=== PATIENT | male | born 1955 | race Two or more races ===

== ENCOUNTER 2020-07-15 06:25 | Day surgery (SDC) | payer OTHER | END 2020-07-15 10:50 | disposition home or self-care (01) | LOC: AMB-ENDOS 06:25 → CIR.AMB 10:15 → AMB-ENDOS 10:50 | PROVIDERS: ATTEND Colon & Rectal Surgery | DX: D12.4 Benign neoplasm of descending colon (principal); K62.1 Rectal polyp; K64.8 Other hemorrhoids; Z20.822 Contact with and (suspected) exposure to COVID-19; K62.82 Dysplasia of anus ==

== ENCOUNTER 2020-07-24 12:15 | Inpatient (IN) | payer OTHER ==
[~2020-07-24] VITALS: Ht 167.6 cm; Wt 90.7 kg
[2020-07-24] MEDS ORDERED: GLIPIZIDE XL10 MG PO (14:59)
[2020-07-24] MEDS ORDERED: SIMVAST PO (14:59)
[2020-07-27] MEDS ORDERED: HORIZANT300 MG PO (16:28)
[2020-07-27] MEDS ORDERED: JANUMET 50-1,01 EACH PO (16:28)
[2020-07-27] MEDS ORDERED: SIMVASTATIN5 MG PO (16:29)
[2020-07-27] MEDS ORDERED: VITAMIN B-121000 MC2 SL (16:30)
[2020-07-27] MEDS ORDERED: INTEGRA PLUS C1 EACH PO (16:30)
[2020-07-31] MEDS ORDERED: LATANOPROST2.5 ML (13:11)
[2020-07-31] MEDS ORDERED: BRIMONIDINE TART5 M1 (13:11)
[2020-07-31] MEDS ORDERED: DORZOLAMIDE-TIM10 ML (13:12)
[2020-07-31] MEDS ORDERED: ATORVASTATIN CA10 MG (13:12)
[2020-07-31] MEDS ORDERED: PENTOXIFYLLINE400 MG (13:12)
== END 2020-08-03 12:08 | disposition home or self-care (01) | DRG 330 ==
LOC: O/R 07-31 07:57 → SURH 07-31 07:57 → O/R 07-31 12:15 → SURH 07-31 19:03
PROVIDERS: ADMIT Colon & Rectal Surgery; ATTEND Colon & Rectal Surgery
PROC: 07BB4ZX Excision of Mesenteric Lymphatic, Percutaneous Endoscopic Approach, Diagnostic (ICD-10-PCS; 2020-07-31)
PROC: 0DBU4ZZ Excision of Omentum, Percutaneous Endoscopic Approach (ICD-10-PCS; 2020-07-31)
PROC: 0WQF4ZZ Repair Abdominal Wall, Percutaneous Endoscopic Approach (ICD-10-PCS; 2020-07-31)
PROC: 3E0F7SF Introduction of Other Gas into Respiratory Tract, Via Natural or Artificial Opening (ICD-10-PCS; 2020-07-31)
PROC: 0DBL4ZZ Excision of Transverse Colon, Percutaneous Endoscopic Approach (ICD-10-PCS; principal; 2020-07-31 12:15)
DX: C18.4 Malignant neoplasm of transverse colon (principal); R59.0 Localized enlarged lymph nodes; K43.9 Ventral hernia without obstruction or gangrene; D62 Acute posthemorrhagic anemia; D63.0 Anemia in neoplastic disease; E11.9 Type 2 diabetes mellitus without complications

== ENCOUNTER 2020-10-13 05:59 | Day surgery (SDC) | payer OTHER ==
[~2020-10-13 05:59] MED LIST: ATORVASTATIN CA10 MG; BRIMONIDINE TART5 M1; DORZOLAMIDE-TIM10 ML; GLIPI PO; GLIPIZIDE XL10 MG PO; HORIZANT300 MG PO; INTEGRA PLUS C1 EACH PO; JANUMET 50-1,01 EACH PO; LATANOPROST2.5 ML; METFOR PO; PENTOXIFYLLINE400 MG; SIMVAST PO; SIMVASTATIN5 MG PO; VITAMIN B-121000 MC2 SL
== END 2020-10-13 14:10 | disposition home or self-care (01) ==
LOC: CIR.AMB 05:59
PROVIDERS: ATTEND Specialist
DX: C18.4 Malignant neoplasm of transverse colon (principal); Z20.822 Contact with and (suspected) exposure to COVID-19
CPT/HCPCS: 36561; C1751